=== PATIENT | male | born 1990 | race Hispanic/Latino ===

== ENCOUNTER 2017-04-08 08:54 | Emergency (ER) | payer OTHER ==
[~2017-04-08] VITALS: Ht 185.4 cm; Wt 88.6 kg
[~2017-04-08 08:54] MED LIST: AMOX/K CLAV875 M1 PO; BENADRYL 50MG C50 MG PO; CIPROFLOXACN500 MG PO; LORTAB 10-325 M1 TAB PO; LORTAB 5/3255 MG PO; NAPROXEN500 MG PO; PERCOCET1 TA4 PO; VICODIN ES1 TA1 PO
[2017-04-08] MEDS ORDERED: FLEXERIL PO (10:14)
[2017-04-08] MEDS ORDERED: MOTRIN800 MG PO (10:14)
[2017-04-08 10:26] VITALS: BP 138/85
== END 2017-04-08 10:45 | disposition home or self-care (01) | DRG 552 ==
LOC: ED 08:54
DX: S13.4XXA Sprain of ligaments of cervical spine, initial encounter (principal); S23.3XXA Sprain of ligaments of thoracic spine, initial encounter; S33.5XXA Sprain of ligaments of lumbar spine, initial encounter; V53.5XXA Driver of pick-up truck or van injured in collision with car, pick-up truck or van in traffic accident, initial encounter; Y92.414 Local residential or business street as the place of occurrence of the external cause

== ENCOUNTER 2018-04-08 22:17 | Emergency (ER) | payer OTHER ==
[~2018-04-08] VITALS: Ht 185.4 cm; Wt 91.0 kg
[~2018-04-08 22:17] MED LIST changes: +FLEXERIL PO; +MOTRIN800 MG PO
[2018-04-08 22:51] LABS: HEMATOCRIT 45.5 % (39.0-50.0); HEMOGLOBIN 15.5 g/dl (14.0-18.0); IMMATURE GRANULOCYTES 0.3 % (0.0-5.0); MEAN CELL VOLUME 88.9 fL CALC (80.0-100.0); MEAN CORPUSCULAR HGB 30.3 pG CALC (26.0-32.0); MEAN CORPUSCULAR HGB CONC 34.1 g/L CALC (32.0-36.0); NEUT# 4.48 thou/uL (1.82-7.42); RED BLOOD COUNT 5.12 mill/uL (4.70-6.10); RED CELL DISTRI WIDTH 12.2 % (11.5-15.5)
[2018-04-08 23:00] LABS: ALBUMIN 4.7 g/dL (3.2-5.0); ALKALINE PHOSPHATASE 65 u/l (38-126); ANION GAP 15 (6-22 (CALC)); BILIRUBIN, TOTAL 0.6 mg/dL (0.0-1.4); BUN 19 mg/dL (9-20); BUN/CREATININE RATIO 16 (12-20 (CALC)); CARBON DIOXIDE 27 mmol/l (22-30); CHLORIDE 104 mmol/l (95-108); CREATININE 1.1 mg/dL (0.7-1.3); GFR > 60 ML/MIN (>=60 (CALC)); GFR FOR AFR.AMER. > 60 ML/MIN (>=60 (CALC)); POTASSIUM 3.7 mmol/l (3.5-5.1); SGOT/AST 17 u/l (17-59); SODIUM 142 mmol/l (137-146); TOTAL PROTEIN 7.6 g/dL (6.3-8.2)
[2018-04-08 23:43] LABS: MYOGLOBIN 49 ng/mL (0 - 121)
[2018-04-08 23:52] LABS: URINE BILIRUBIN - DIPSTICK NEGATIVE (NEGATIVE); URINE BLOOD DIPSTICK NEGATIVE (NEGATIVE); URINE COLOR YELLOW; URINE GLUCOSE - DIPSTICK NEGATIVE (NEGATIVE); URINE KETONE NEGATIVE (NEGATIVE); URINE LEUK ESTERASE NEGATIVE (NEGATIVE); URINE NITRITE - DIPSTICK NEGATIVE (Negative); URINE PH 5.5 (4.5-8.0); URINE PROTEIN - DIPSTICK 30 mg/dL (NEG-TRACE); URINE SPECIFIC GRAVITY >=1.030; URINE UROBILINOGEN - DIPSTICK 0.2 E.U./dL (0.2)
[2018-04-08 23:54] LABS: BARBITURATES NEGATIVE (NEGATIVE); COCAINE NEGATIVE (NEGATIVE); METHADONE NEGATIVE (NEGATIVE); OXCYCODONE NEGATIVE (NEGATIVE); TETRAHYDROCANNABIONOL NEGATIVE (NEGATIVE); TRICYLIC ANTIDEPRESSANTS NEGATIVE (NEGATIVE); URINE MUCUS MANY hpf (NONE-FEW)
[2018-04-09 00:08] VITALS: BP 120/80
== END 2018-04-09 00:13 ==
LOC: ED 22:17
PROVIDERS: Emergency Medicine
DX: S63.501A Unspecified sprain of right wrist, initial encounter (principal); F41.9 Anxiety disorder, unspecified; F19.10 Other psychoactive substance abuse, uncomplicated; Y35.893A Legal intervention involving other specified means, suspect injured, initial encounter; R00.2 Palpitations

== ENCOUNTER 2018-09-06 07:15 | Emergency (ER) | payer SELFPAY ==
[~2018-09-06] VITALS: Ht 185.4 cm; Wt 90.0 kg
[2018-09-06] MEDS ORDERED: CEPHALEXIN500 M1 PO (07:31)
[2018-09-06 07:40] VITALS: BP 127/68
== END 2018-09-06 07:40 | disposition home or self-care (01) | DRG 607 ==
LOC: ED 07:15
DX: S60.561A Insect bite (nonvenomous) of right hand, initial encounter (principal); L08.9 Local infection of the skin and subcutaneous tissue, unspecified; W57.XXXA Bitten or stung by nonvenomous insect and other nonvenomous arthropods, initial encounter

== ENCOUNTER 2019-02-06 08:46 | Emergency (ER) | payer OTHER ==
[~2019-02-06] VITALS: Ht 185.4 cm; Wt 100.0 kg
[~2019-02-06 08:46] MED LIST changes: +CEPHALEXIN500 M1 PO
[2019-02-06] MEDS ORDERED: KEFLEX500 MG PO (11:10)
[2019-02-06 11:20] VITALS: BP 158/98
== END 2019-02-06 11:20 | DRG 605 ==
LOC: ED 08:46
DX: S91.115A Laceration without foreign body of left lesser toe(s) without damage to nail, initial encounter (principal); W26.9XXA Contact with unspecified sharp object(s), initial encounter; Y93.89 Activity, other specified; Y92.143 Cell of prison as the place of occurrence of the external cause

== ENCOUNTER 2021-06-04 18:19 | Emergency (ER) | payer SELFPAY ==
[~2021-06-04] VITALS: Ht 185.4 cm; Wt 104.5 kg
[~2021-06-04 18:19] MED LIST changes: +KEFLEX500 MG PO
[2021-06-04] MEDS ORDERED: TRAMADOL HCL50 MG PO (18:33)
[2021-06-04] MEDS ORDERED: VOLTAREN75 MG PO (18:33)
[2021-06-04] MEDS ORDERED: AMOXICILLIN500 MG PO (18:33)
[2021-06-04 18:50] VITALS: BP 139/96
== END 2021-06-04 18:50 | disposition home or self-care (01) | DRG 159 ==
LOC: ED 18:19
DX: K04.7 Periapical abscess without sinus (principal); K02.9 Dental caries, unspecified

== ENCOUNTER 2022-01-08 20:57 | Emergency (ER) | payer OTHER ==
[~2022-01-08] VITALS: Ht 185.4 cm; Wt 90.0 kg
[~2022-01-08 20:57] MED LIST changes: +AMOXICILLIN500 MG PO; +TRAMADOL HCL50 MG PO; +VOLTAREN75 MG PO
[2022-01-08 21:41] VITALS: BP 129/90
[2022-01-08 21:45] VITALS: BP 125/87
[2022-01-08 22:00] VITALS: BP 125/81
[2022-01-08 22:15] VITALS: BP 126/84
[2022-01-08] MEDS ORDERED: NAPROXEN500 MG PO (23:57)
[2022-01-08] MEDS ORDERED: CYCLOBENZAPRINE10 MG PO (23:57)
[2022-01-09 00:09] VITALS: BP 126/84
== END 2022-01-09 00:21 | disposition home or self-care (01) | DRG 552 ==
LOC: ED 20:57
DX: M54.50 Low back pain, unspecified (principal); M54.2 Cervicalgia; R51.9 Headache, unspecified; V49.50XA Passenger injured in collision with unspecified motor vehicles in traffic accident, initial encounter